=== PATIENT | male | born 1945 | race Caucasian/White ===

== ENCOUNTER → 2022-09-08 10:53 | Outpatient (CLI) | payer MEDICARE, OTHER, SELFPAY ==
[2022-09-08 12:07] LABS: COVID19 -Nasal RAPID Negative (Negative)
== END ==
PROVIDERS: Visit Provider Physician Assistant Medical
DX: J02.9 Acute pharyngitis, unspecified (principal); Z20.822 Contact with and (suspected) exposure to COVID-19
CPT/HCPCS: 87070; 87635; 87880